=== PATIENT | female | born 1985 | race African-American/Black ===

== ENCOUNTER 2022-09-21 10:05 | Emergency (ER) | payer MEDICAID, OTHER ==
[~2022-09-21] VITALS: Ht 162.6 cm; Wt 78.0 kg
[2022-09-21 10:40] LABS: HEMOGLOBIN. 11.1 g/dL (12.0-16.0); MEAN CORPUSCULAR HEMOGLOBIN 23.8 pg (28.0-32.0); MEAN CORPUSCULAR VOLUME 71.1 fL (81.0-99.0); MEAN PLATELET VOLUME 10.3 fl (7.4-10.4); PLATELET 210 x1000/uL (130-400); RED BLOOD CELL COUNT 4.64 mill/uL (4.2-5.4); RED CELL DISTRIBUTION WIDTH 16.8 % (11.6-14.6)
[2022-09-21 10:57] LABS: CHLORIDE 110 mEq/L (98-107)
[2022-09-21 11:38] LABS: ATYPICAL LYMPHOCYTES 1
[2022-09-21 11:40] LABS: PLATELET ESTIMATE NORMAL
[2022-09-21] MEDS ORDERED: FAMOTIDINE 20MG/2ML VIAL IV ONE (14:00)
[2022-09-21] MEDS ORDERED: MAGNESIUM/ALUMINUM HYDROXIDE/SIMETHICONE 30ML UDC PO ONE (14:00)
[2022-09-21 14:31] LABS: CLARITY URINE CLOUDY (CLEAR); COLOR URINE DARK YELLOW (YELLOW); KETONES URINE NEGATIVE (NEGATIVE); LEUKOCYTE ESTERASE URINE TRACE (NEGATIVE); NITRITE URINE NEGATIVE (NEGATIVE); OCCULT BLOOD URINE NEGATIVE (NEGATIVE); PH URINE 5.5 (4.5-8.0); PROTEIN URINE TRACE (NEGATIVE); SPECIFIC GRAVITY URINE 1.028 (1.005-1.030)
[2022-09-21] MEDS ORDERED: MAGNESIUM/ALUMINUM HYDROXIDE/SIMETHICONE 30ML UDC PO NR (15:30)
[2022-09-21] MEDS ORDERED: FAMOTIDINE 20MG/2ML VIAL IV NR (15:30)
[2022-09-21] MEDS ORDERED: FAMO40TA70 MT (17:02)
[2022-09-21 17:21] VITALS: BP 131/62
== END 2022-09-21 17:26 | disposition home or self-care (01) ==
LOC: ER 10:05
DX: R07.89 Other chest pain (principal); Z88.0 Allergy status to penicillin; Z98.890 Other specified postprocedural states
CPT/HCPCS: 36415; 71045; 76705; 80053; 81003; 81025; 84484; 85025; 93005; 96374; 99285; J3490; Z7610

== ENCOUNTER 2024-01-23 06:38 | Emergency (ER) | payer MEDICAID, OTHER ==
[~2024-01-23] VITALS: Ht 165.1 cm; Wt 87.3 kg
[~2024-01-23 06:38] MED LIST: FAMO40TA70 MT
[2024-01-23 07:02] VITALS: O2SAT 98
[2024-01-23 07:35] LABS: BASOPHILS % 0.9 % (0.0-2.0); EOSINOPHILS % 1.9 % (0.0-5.0); HEMATOCRIT. 37.3 % (36.0-48.0); HEMOGLOBIN. 12.9 g/dL (12.0-16.0); LYMPHOCYTES % 41.2 % (20.0-50.0); MEAN CORPUSCULAR HGB CONC 34.6 g/dL (31.0-37.0); MONOCYTES % 10.3 % (2.0-8.0); NEUTROPHILS % 45.7 % (40.0-76.0); PLATELET 207 x1000/uL (130-400); RED BLOOD CELL COUNT 4.61 mill/uL (4.2-5.4); RED CELL DISTRIBUTION WIDTH 16.3 % (11.6-14.6)
[2024-01-23 07:43] LABS: CHLORIDE 110 mEq/L (98-107); POTASSIUM 3.9 mEq/L (3.5-5.1); SODIUM 139 mEq/L (136-145)
[2024-01-23 07:44] LABS: CALCIUM 9.1 mg/dL (8.7-10.4); CARBON DIOXIDE 27 mEq/L (21-32)
[2024-01-23 07:49] LABS: CREATININE 0.8 mg/dL (0.6-1.0); GLUCOSE 85 mg/dL (70-105); UREA NITROGEN BLOOD 7 mg/dL (9-23)
[2024-01-23 07:50] LABS: ALANINE AMINOTRANSFERASE < 7 IU/L (10-49)
[2024-01-23 07:51] LABS: ALBUMIN 4.5 g/dL (3.2-4.8); ASPARTATE AMINOTRANSFERASE 17 IU/L (<34); BILIRUBIN DIRECT 0.2 mg/dL (<=3.0); BILIRUBIN TOTAL 0.6 mg/dL (0.1-1.0); PROTEIN TOTAL 7.2 g/dL (6.0-8.3)
[2024-01-23] MEDS ORDERED: KETOROLAC 15MG/ML VIAL IV NR (08:00)
[2024-01-23 08:45] LABS: CLARITY URINE TURBID (CLEAR); COLOR URINE BLOODY (YELLOW); GLUCOSE URINE NEGATIVE (NEGATIVE); KETONES URINE NEGATIVE (NEGATIVE); OCCULT BLOOD URINE 3+ (NEGATIVE); PROTEIN URINE 2+ (NEGATIVE); SPECIFIC GRAVITY URINE 1.025 (1.005-1.030)
[2024-01-23 08:46] LABS: LEUKOCYTE ESTERASE URINE TRACE (NEGATIVE); NITRITE URINE NEGATIVE (NEGATIVE); UROBILINOGEN URINE 0.2 E.U./dL (0.2-1.0)
[2024-01-23 08:59] LABS: RBC URINE TNTC /hpf (0-2)
[2024-01-23 09:00] LABS: BACTERIA URINE 2+; SQUAMOUS EPITHELIAL CELL URINE 3+ /lpf (RARE/1+)
[2024-01-23] MEDS: KETOROLAC 15MG/ML VIAL IM NR (09:51)
[2024-01-23] MEDS ORDERED: IBUP-2030 PO (10:01)
[2024-01-23 10:10] VITALS: BP 133/77; PULSE 62; RESP 15; TEMP 37.00296; O2SAT 98
== END 2024-01-23 10:11 | disposition home or self-care (01) ==
LOC: ER 06:38
DX: D25.9 Leiomyoma of uterus, unspecified (principal); F12.90 Cannabis use, unspecified, uncomplicated; Z98.890 Other specified postprocedural states
CPT/HCPCS: 80076; 80048; 81003; 81025; 84702; 83690; 85025; 36415; 76830; 76856; 96372; 99285; J1885; Z7610